=== PATIENT | female | born 1995 | race Caucasian/White ===

== ENCOUNTER 2017-10-30 15:56 | Emergency (ER) | payer OTHER ==
[~2017-10-30] VITALS: Ht 157.5 cm; Wt 54.0 kg
[2017-10-30] MEDS ORDERED: FOLIC ACID0.4 MG (16:13)
== END 2017-10-30 22:02 | disposition home or self-care (01) ==
LOC: ER 15:56
DX: O26.892 Other specified pregnancy related conditions, second trimester (principal); O47.9 False labor, unspecified; Z34.02 Encounter for supervision of normal first pregnancy, second trimester

== ENCOUNTER 2017-11-18 22:32 | Emergency (ER) | payer OTHER ==
[~2017-11-18] VITALS: Ht 154.9 cm; Wt 55.3 kg
== END 2017-11-19 06:39 | disposition home or self-care (01) ==
LOC: ER 22:32
DX: O26.892 Other specified pregnancy related conditions, second trimester (principal); R10.2 Pelvic and perineal pain; Z34.82 Encounter for supervision of other normal pregnancy, second trimester

== ENCOUNTER 2017-12-12 00:26 | Emergency (ER) | payer OTHER ==
[~2017-12-12] VITALS: Ht 157.5 cm; Wt 54.4 kg
[~2017-12-12 00:26] MED LIST: FOLIC ACID0.4 MG
[2017-12-12] MEDS ORDERED: XOPENEX0.63 MG/3 IH (03:12)
[2017-12-12] MEDS ORDERED: ZYRTEC10 M2 PO (03:12)
== END 2017-12-12 03:28 | disposition home or self-care (01) ==
LOC: ER 00:26
DX: F41.9 Anxiety disorder, unspecified (principal); T48.6X5A Adverse effect of antiasthmatics, initial encounter

== ENCOUNTER 2017-12-21 18:28 | Outpatient (CLI) | payer OTHER ==
[~2017-12-21 18:28] MED LIST changes: +XOPENEX0.63 MG/3 IH; +ZYRTEC10 M2 PO
[2017-12-21] MEDS ORDERED: PRENATAL TABLE1 EAC1 PO (23:15)
== END 2017-12-22 10:26 | disposition home or self-care (01) ==
LOC: OBS/DEL 18:28
DX: O98.812 Other maternal infectious and parasitic diseases complicating pregnancy, second trimester (principal); B37.89 Other sites of candidiasis; O60.02 Preterm labor without delivery, second trimester; Z34.82 Encounter for supervision of other normal pregnancy, second trimester

== ENCOUNTER 2018-03-09 19:58 | Emergency (ER) | payer OTHER ==
[~2018-03-09] VITALS: Ht 157.5 cm; Wt 68.0 kg
[~2018-03-09 19:58] MED LIST changes: +PRENATAL TABLE1 EAC1 PO
== END 2018-03-09 23:00 | disposition home or self-care (01) ==
LOC: ER 19:58
DX: J06.9 Acute upper respiratory infection, unspecified (principal)

== ENCOUNTER 2018-03-26 13:18 | Emergency (ER) | payer OTHER ==
[~2018-03-26] VITALS: Ht 154.9 cm; Wt 63.5 kg
[2018-03-26] MEDS ORDERED: FOLIC ACID0.4 MG PO (13:43)
== END 2018-03-26 17:55 | disposition home or self-care (01) ==
LOC: ER 13:18
DX: J02.9 Acute pharyngitis, unspecified (principal)

== ENCOUNTER 2018-04-15 22:29 | Outpatient (CLI) | payer OTHER ==
[~2018-04-15 22:29] MED LIST changes: +FOLIC ACID0.4 MG PO
== END 2018-04-16 10:34 | disposition home or self-care (01) ==
LOC: OBS/DEL 22:29
DX: O26.893 Other specified pregnancy related conditions, third trimester (principal); Z04.3 Encounter for examination and observation following other accident; Z34.03 Encounter for supervision of normal first pregnancy, third trimester; O60.03 Preterm labor without delivery, third trimester; E16.1 Other hypoglycemia; W18.39XA Other fall on same level, initial encounter; Y93.89 Activity, other specified; Y92.89 Other specified places as the place of occurrence of the external cause; Y99.8 Other external cause status

== ENCOUNTER 2018-04-23 15:19 | Inpatient (IN) | payer OTHER ==
[~2018-04-23] VITALS: Ht 157.5 cm; Wt 66.7 kg
[2018-04-26] MEDS ORDERED: PREPLUS CA-FE1 EACH PO (09:11)
[2018-04-26] MEDS ORDERED: IBUPROFEN400 MG PO (09:11)
== END 2018-04-26 11:41 | disposition home or self-care (01) | DRG 807 ==
LOC: OB/GYN → LDR 04-24 18:02 → OB/GYN 04-24 22:13
PROVIDERS: ADMIT Obstetrics & Gynecology
PROC: 10E0XZZ Delivery of Products of Conception, External Approach (ICD-10-PCS; principal; 2018-04-24)
PROC: 4A1HXCZ Monitoring of Products of Conception, Cardiac Rate, External Approach (ICD-10-PCS; 2018-04-24)
PROC: 0UQGXZZ Repair Vagina, External Approach (ICD-10-PCS; 2018-04-24)
PROC: 4A033R1 Measurement of Arterial Saturation, Peripheral, Percutaneous Approach (ICD-10-PCS; 2018-04-24)
DX: O71.4 Obstetric high vaginal laceration alone (principal); Z37.0 Single live birth; Z3A.40 40 weeks gestation of pregnancy; Z22.330 Carrier of Group B streptococcus

== ENCOUNTER 2018-04-24 16:31 | Outpatient (CLI) | payer OTHER | END 2018-04-24 18:00 | disposition still patient (30) | LOC: OBS/DEL 16:31 | DX: O47.1 False labor at or after 37 completed weeks of gestation (principal); Z34.83 Encounter for supervision of other normal pregnancy, third trimester ==